=== PATIENT | female | born 1990 | race Two or more races ===

== ENCOUNTER 2022-08-21 16:41 | Observation (INO) | payer OTHER ==
[~2022-08-21] VITALS: Ht 162.6 cm; Wt 77.4 kg
[2022-08-21 17:00] VITALS: BP 118/75
[2022-08-21] MEDS ORDERED: PREN-96 PO (18:59)
[2022-08-21] MEDS ORDERED: SERT50TA PO (19:00)
[2022-08-21] MEDS ORDERED: PYRI1TAB3 PO (19:18)
== END 2022-08-21 20:45 | disposition home or self-care (01) ==
LOC: ER 16:41 → LDRP 17:20 → EDBD 17:20 → LDRP 18:35
PROVIDERS: ADMIT Obstetrics & Gynecology; ATTEND Obstetrics & Gynecology
DX: O9A.212 Injury, poisoning and certain other consequences of external causes complicating pregnancy, second trimester (principal); S30.1XXA Contusion of abdominal wall, initial encounter; V89.2XXA Person injured in unspecified motor-vehicle accident, traffic, initial encounter; Y93.89 Activity, other specified; Y92.89 Other specified places as the place of occurrence of the external cause; Y99.8 Other external cause status; Z3A.23 23 weeks gestation of pregnancy
CPT/HCPCS: 59025; 76815; 81002; 94760; G0378